=== PATIENT | female | born 1970 | race Two or more races ===

== ENCOUNTER 2018-04-06 14:16 | Inpatient (IN) | payer OTHER ==
[2018-04-06 18:44] LABS: ADD MAN DIFF? NO
[2018-04-06] MEDS: LACTATED RINGER'S 1,000 ML IV* ×2 (18:46→22:56)
[2018-04-06 18:53] LABS: ABNORMAL IP MESSAGE 1; BASOPHILS % 0.3 % (0.0-2.0); EOSINOPHILS # 0.1 10^3/ul (0.0-0.5); EOSINOPHILS % 0.9 % (0.0-7.0); HEMATOCRIT 37.9 % (37.0-47.0); HEMOGLOBIN 12.7 g/dl (12.0-16.0); LYMPHOCYTES # 1.9 10^3/ul (0.8-2.9); LYMPHOCYTES % 26.9 % (15.0-51.0); MEAN CORPUSCULAR HEMOGLOBIN 29.2 pg (29.0-33.0); MEAN CORPUSCULAR HGB CONC 33.5 g/dl (32.0-37.0); MEAN CORPUSCULAR VOLUME 87.1 fl (82.0-101.0); MEAN PLATELET VOLUME 13.6 fl (7.4-10.4); MONOCYTE # 0.5 10^3/ul (0.3-0.9); MONOCYTES % 6.9 % (0.0-11.0); NEUTROPHIL # 4.5 10^3/ul (1.6-7.5); NEUTROPHILS % 64.3 % (39.0-77.0); PLATELET COUNT 154 10^3/UL (140-415); RED BLOOD COUNT 4.35 10^6/ul (4.20-5.40); RED CELL DISTRIBUTION WIDTH 14.2 % (11.5-14.5)
[2018-04-06 18:53] LABS: WHITE BLOOD COUNT 6.9 10^3/ul (4.8-10.8)
[2018-04-06 18:54] LABS: POSITIVE DIFF @See below
[2018-04-06] MEDS ORDERED: MISOPROSTOL 200 MCG TAB PR (19:00)
[2018-04-06] MEDS ORDERED: CARBOPROST 250 MCG INJ IM (19:00)
[2018-04-06] MEDS ORDERED: LIDOCAINE 1% (MPF) 30 ML INJ INJ (19:00)
[2018-04-06] MEDS ORDERED: IBUPROFEN 600 MG TAB PO (19:00)
[2018-04-06] MEDS ORDERED: METHYLERGONOVINE 0.2 MG INJ IM (19:00)
[2018-04-06] MEDS ORDERED: OXYTOCIN 30 UNITS/LR 500 ML IV (19:00)
[2018-04-06] MEDS ORDERED: OXYCODONE/ACETAMINOPHEN (5/325) TAB PO (19:00)
[2018-04-06 19:03] LABS: INR 0.86; PROTIME 11.8 Sec (11.9-14.9); PT RATIO 0.9
[2018-04-06 19:04] LABS: PARTIAL THROMBOPLASTIN TIME 26.8 Sec (25.0-35.0)
[2018-04-06] MEDS: BUTORPHANOL 2 MG INJ IV (19:21)
[2018-04-06 19:46] LABS: HEPATITIS B SURFACE ANTIGEN NEGATIVE (NEGATIVE)
[2018-04-06] MEDS: LACTATED RINGER'S 1,000 ML IV (20:11)
[2018-04-06] MEDS ORDERED: NALOXONE (0.4 MG/ML) INJ IV (21:00)
[2018-04-06] MEDS ORDERED: DIPHENHYDRAMINE 50 MG INJ IV (21:00)
[2018-04-06] MEDS: FENTAnyl 2MCG/ML-ROPIV 0.2% 100 ML BAG EPI (21:53)
[2018-04-06] MEDS: ONDANSETRON 4 MG INJ IV (21:54)
[2018-04-07] MEDS: MINERAL OIL LIGHT 10 ML VIAL TOP (04:38)
[2018-04-07] MEDS: OXYTOCIN 30 UNITS/LR 500 ML IV ×3 (04:49→18:18)
[2018-04-07] MEDS: LACTATED RINGER'S 1,000 ML IV* ×2 (05:08→09:36)
[2018-04-07] MEDS ORDERED: OXYTOCIN 30 UNITS/LR 500 ML IV (05:30)
[2018-04-07] MEDS ORDERED: METHYLERGONOVINE 0.2 MG INJ IM (05:30)
[2018-04-07] MEDS ORDERED: HYDROCODONE/APAP (5/325) TAB PO (05:30)
[2018-04-07] MEDS ORDERED: CARBOPROST 250 MCG INJ IM (05:30)
[2018-04-07] MEDS ORDERED: MISOPROSTOL 200 MCG TAB PR (05:30)
[2018-04-07] MEDS: IBUPROFEN 600 MG TAB PO ×4 (06:00→23:50)
[2018-04-07] MEDS: BENZOCAINE 20% 56 ML SPRAY TOP (14:11)
[2018-04-07] MEDS: LANOLIN 7 GM TUBE TOP (14:11)
[2018-04-07 15:16] LABS: RAPID PLASMA REAGIN NONREACTIVE (NR)
[2018-04-08] MEDS: IBUPROFEN 600 MG TAB PO ×3 (05:42→18:04)
[2018-04-08 09:30] LABS: ADD MAN DIFF? NO
[2018-04-08 09:33] LABS: ABNORMAL IP MESSAGE 1; BASOPHILS % 0.4 % (0.0-2.0); EOSINOPHILS # 0.2 10^3/ul (0.0-0.5); EOSINOPHILS % 2.1 % (0.0-7.0); HEMATOCRIT 31.7 % (37.0-47.0); HEMOGLOBIN 10.2 g/dl (12.0-16.0); LYMPHOCYTES % 20.9 % (15.0-51.0); MEAN CORPUSCULAR HEMOGLOBIN 29.1 pg (29.0-33.0); MEAN CORPUSCULAR HGB CONC 32.2 g/dl (32.0-37.0); MEAN CORPUSCULAR VOLUME 90.6 fl (82.0-101.0); MEAN PLATELET VOLUME 13.1 fl (7.4-10.4); MONOCYTE # 0.6 10^3/ul (0.3-0.9); MONOCYTES % 6.5 % (0.0-11.0); NEUTROPHIL # 6.5 10^3/ul (1.6-7.5); NEUTROPHILS % 69.1 % (39.0-77.0); PLATELET COUNT 128 10^3/UL (140-415); RED CELL DISTRIBUTION WIDTH 14.7 % (11.5-14.5)
[2018-04-08 09:33] LABS: WHITE BLOOD COUNT 9.4 10^3/ul (4.8-10.8)
[2018-04-08 09:37] LABS: POSITIVE DIFF @See below
[2018-04-09] MEDS: IBUPROFEN 600 MG TAB PO ×3 (00:32→12:04)
[2018-04-09] MEDS: MAGNESIUM HYDROXIDE 30ML CUP PO (00:32)
[2018-04-09] MEDS: DIPHTH/TET/ACEL PERTUSS (ADULT) 0.5 ML VIAL IM* (09:00)
== END 2018-04-09 15:50 | disposition home or self-care (01) | DRG 774 ==
LOC: OBT 14:16 → PP1 04-07 06:27 → L-D 14:16 → OBT 16:41 → L-D 16:41
PROVIDERS: Obstetrics & Gynecology
PROC: 10E0XZZ Delivery of Products of Conception, External Approach (ICD-10-PCS; principal; 2018-04-06)
PROC: 0W8NXZZ Division of Female Perineum, External Approach (ICD-10-PCS; 2018-04-06)
PROC: 3E033VJ Introduction of Other Hormone into Peripheral Vein, Percutaneous Approach (ICD-10-PCS; 2018-04-06)
DX: O10.92 Unspecified pre-existing hypertension complicating childbirth (principal); Z3A.39 39 weeks gestation of pregnancy; Z37.0 Single live birth
CPT/HCPCS: 62319; 76815; 76818; 85025; 85610; 85730; 86592; 86850; 86900; 86901; 87340